=== PATIENT | male | born 1945 | race Caucasian/White ===

== ENCOUNTER → 2018-03-22 | Outpatient (CLI) | payer MEDICARE ==
--- NOTE | 2018-03-22 12:19 | CT ---
EXAMINATION TYPE: CT abdomen pelvis w con DATE OF EXAM: 03/22/2018 COMPARISON: None HISTORY: Recent elevated PSA results. CT DLP: 1572 mGycm Automated exposure control for dose reduction was used. TECHNIQUE: Helical acquisition of images was performed from the lung bases through the pelvis. CONTRAST: Performed with Oral Contrast and with IV Contrast, patient injected with 100 mL of Isovue M300. FINDINGS: LUNG BASES: Minimal bibasilar subsegmental atelectasis is seen. LIVER/GB: Hepatic arterial calcifications are noted incidentally. Hepatic parenchyma is homogeneous. Cholelithiasis is seen. PANCREAS: No significant abnormality is seen. SPLEEN: No significant abnormality is seen. ADRENALS: Adrenal glands appear slightly thickened bilaterally but maintain a normal adreniform shape , likely related to adrenal gland hyperplasia. 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 Kidneys enhance and excrete symmetrically. No hydronephrosis. FREE AIR: No free air is visualized. ADENOPATHY: No suspicious pelvic or abdominal adenopathy is seen. REPRODUCTIVE ORGANS: Slight hyperdensity of the posterior mid gland and apex are noted such as on ser ies 3 image 91 and 90 on liver windows. There is slight fullness of the left seminal vesicle in roosevelt rison to the right, which could be physiologic. URINARY BLADDER: There is a 9 mm peripherally hyperdense lesion within the urinary bladder that appe ars intraluminal on sagittal series 9 image 72 also marked on axial series 3 image 83. On the right t here is impression by the lobulated prostate gland. OSSEOUS STRUCTURES: Moderate multilevel degenerative change. No suspicious osseous lesion. BOWEL: Hernias are described below scattered colonic diverticula are seen. No dilated large or small bowel. Contrast doesn't enter the colon and therefore limits evaluation of the colon. OTHER: There is a large left inguinal hernia containing the sigmoid colon and multiple colonic divert iculi without dilated bowel to suggest obstruction nor pericolonic fat stranding. The right inguinal canal is patulous and there is a low-lying small bowel just entering the small hernia. Extensive atherosclerosis is seen of the abdominal aorta and its branches. Punctate calcific density of the inferior right gluteal subcutaneous tissues may be on the basis of p rior trauma or injection granuloma. IMPRESSION: 1. NO SUSPICIOUS PELVIC, ABDOMINAL, OR SPECIFICALLY RETROPERITONEAL ADENOPATHY. NO SUSPICIOUS OSSEOUS LESIONS. 2. LARGE LEFT INGUINAL HERNIA CONTAINING NONDILATED SIGMOID COLON AND SMALL RIGHT INGUINAL HERNIA CON TAINING NONDILATED SMALL BOWEL. 3. 9 MM HYPERDENSE LESION APPEARING TO BE WITHIN THE URINARY BLADDER. FURTHER ASSESSMENT COULD BE PER FORMED WITH CT UROGRAM OR DIRECT VISUALIZATION. 4. HETEROGENOUS PROSTATE GLAND WITH HYPERDENSE REGIONS AT THE POSTERIOR PROSTATE GLAND AND APEX AND S LIGHT ASYMMETRIC SIZE OF THE SEMINAL VESICLES, LEFT GREATER THAN RIGHT.
--- NOTE | 2018-03-22 19:06 | NM ---
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 Staging for prostate cancer. Technique: Delayed whole-body scanning was performed following the injection of 24.8 mCi Tc 99m MDP. Whole body anterior and posterior delayed images acquired 3 hours post injection. FINDINGS: There is intense radiotracer activity limited to the right ischium and right superior pubic ramus. In the left hemipelvis, abnormal tracer activity involving the left inferior pubic ramus and ischial tuberosity. Additional focus seems to be present along the posterior right greater trochanter. Some degenerative tracer activity is noted at the right shoulder, wrists, and knees. IMPRESSION: Abnormal tracer activity involving the right greater than left ischium and pubic bones as well as the posterior right greater trochanter. In the setting of prostate cancer, osseous metastatic disease is considered. Correlate with PSA levels. The CT performed today is reviewed and in retrospect shows smith btle osteosclerosis in these regions.
== END ==
LOC: RADNMMAIN 09:41
PROVIDERS: ATTEND Urology
DX: C61 Malignant neoplasm of prostate (principal); K40.90 Unilateral inguinal hernia, without obstruction or gangrene, not specified as recurrent; N32.9 Bladder disorder, unspecified
CPT/HCPCS: 82565; 84520; 74177; 36415; 78306; A9503; Q9967

== ENCOUNTER → 2018-12-20 | Outpatient (CLI) | payer MEDICARE ==
--- NOTE | 2018-12-21 16:07 | NM ---
EXAMINATION TYPE: NM bone scan whole body DATE OF EXAM: 12/20/2018 COMPARISON: 03/22/2018 Limited thin whole-body bone scan and CT abdomen pelvis HISTORY: Prostate cancer. Follow-up exam. Delayed whole-body scanning was performed following the injection of 24.9 mCi Tc 99m MDP. Images acq uired 3.75 hours post injection. FINDINGS: The previously seen intense radiotracer activity limited to the right ischium and right superior pubi c ramus as well as within the left hemipelvis involving the inferior pubic ramus and ischial tuberosi ty have markedly decreased degree of uptake with only minimal abnormal uptake persisting of the right ischium and acetabulum. The previously seen additional focus of abnormal tracer uptake within the posterior right greater tro chanter has also markedly improved. No new suspicious focal radiotracer accumulation is seen area degenerative changes are also again see n of the axial and appendicular skeleton with symmetric uptake of the shoulders, sacroiliac joints, e lbows, wrists, hips, knees, ankles, and feet. Asymmetric uptake within the right first metatarsophala ngeal joint is also likely degenerative. IMPRESSION: Marked improved degree of uptake within the right pelvis with only minimal abnormal uptake remaining in the right ischium, acetabulum and greater trochanter. No new abnormal uptake to suggest additional site of osseous metastasis. Degenerative changes of the axial and appendicular skeleton are again se en.
== END | disposition home or self-care (01) ==
LOC: RADNMMAIN 10:58
PROVIDERS: ATTEND Urology
DX: M89.8X8 Other specified disorders of bone, other site (principal); C61 Malignant neoplasm of prostate
CPT/HCPCS: 78306; A9503

== ENCOUNTER → 2021-05-12 | Outpatient (CLI) | payer MEDICARE ==
--- NOTE | 2021-05-12 13:14 | CT ---
EXAMINATION TYPE: CT abdomen pelvis w con DATE OF EXAM: 05/12/2021 COMPARISON: CT abdomen and pelvis March 22, 2018. HISTORY: Prostate cancer CT DLP: 1522.50 mGycm, Automated Exposure Control for Dose Reduction was Utilized. CONTRAST: CT scan of the abdomen and pelvis is performed with oral and with IV Contrast, patient injected with 100 mL of Isovue 300. FINDINGS: LUNG BASES: Mild left basilar linear scarring is redemonstrated. Overlying sternal wires from CABG pr ocedure partially imaged similar to prior. LIVER/GB: Dependent small calcified gallstones in the gallbladder are again seen. PANCREAS: No significant abnormality is seen. SPLEEN: No significant abnormality is seen. ADRENALS: Stable mild thickening of bilateral adrenal glands consistent with benign hyperplasia. 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 Left kidney has anterior positioning or axis redemonstrated. There is symmetric cortical uptake and excretion from both kidne ys without hydronephrosis seen bilaterally. BOWEL: Oral contrast does not reach level of the terminal ileum making evaluation of distal bowel sli ghtly suboptimal. There is no suspicious small or large bowel dilatation. There is persistent small t o moderate right inguinal hernia containing contrast-filled nondilated small bowel loops and mesenter ic fat. There is moderate to large size left inguinal hernia containing portion of sigmoid colon. The re are distal colonic diverticula particularly in the left inguinal sigmoid colon. No CT evidence for acute diverticulitis. PROSTATE/SEMINAL VESICLES: Prostate gland not enlarged, diminished in size from prior. Seminal vesicl es normal diminished in size from prior. LYMPH NODES: No greater than 1cm abdominal or pelvic lymph nodes are appreciated. OSSEOUS STRUCTURES: Moderate to severe disc space narrowing L4-L5 level with vacuum disc phenomenon. Facet arthropathy lower lumbar levels. No distinct suspicious new lytic or sclerotic lesion. OTHER: [id number] calcified plaque of the aorta extends into branch vessels. Suspected stent gr aft in the proximal right external iliac artery is thought present similar to prior study. Patency is noted. IMPRESSION: No suspicious new mass or adenopathy to suggest metastatic malignancy. Overall diminished size to the seminal vesicles and prostate gland likely product of anti-androgen medication. Other fi ndings identified not significantly changed from prior CT.
--- NOTE | 2021-05-12 14:07 | NM ---
EXAMINATION TYPE: NM bone scan whole body DATE OF EXAM: 05/12/2021 COMPARISON: NONE HISTORY: C61 prostate cancer Delayed whole-body scanning was performed following the injection of 24 mCi Tc 99m MDP. Images acqui red 3 hours post injection. FINDINGS: Increased radiotracer accumulation about the shoulders, sternoclavicular joints, wrists, knees and an kles and feet. The findings are compatible with degenerative uptake. No intense focal uptake to sugge st metastatic disease. Degenerative uptake mid thoracic spine as well. IMPRESSION: No scintigraphic evidence to suggest metastatic disease at this time.
== END | disposition home or self-care (01) ==
LOC: RADNMMAIN 09:52
PROVIDERS: ATTEND Urology
DX: C61 Malignant neoplasm of prostate (principal)
CPT/HCPCS: 82565; 84520; 74177; 36415; 78306; A9503; Q9967

== ENCOUNTER → 2022-12-02 | Outpatient (CLI) | payer MEDICARE ==
[2022-12-02 10:54] LABS: African American GFR (CKD) 82 (>60 ml/min/1.73 sqM); Blood Urea Nitrogen 24 mg/dL (9-20); Non-African American GFR(CKD) 71 (>60 ml/min/1.73 sqM)
--- NOTE | 2022-12-02 14:36 | NM ---
EXAMINATION TYPE: NM bone scan whole body DATE OF EXAM: 12/02/2022 COMPARISON: NONE CLINICAL INDICATION: Male, 77 years old with history of C61 PROSTATE CANCER; Delayed whole-body scanning was performed following the injection of 22.8 mCi Tc 99m MDP. Images acq uired 3 hours post injection. FINDINGS: There is no intense uptake to suggest metastatic disease to the visualized osseous structures. Degene rative uptake about the shoulders, sternoclavicular joints, bilateral wrists, knees and ankles. Mild degenerative uptake about the mid thoracic spine and lumbar spine. IMPRESSION: No scintigraphic evidence to suggest metastatic disease to the osseous structures at this time.
--- NOTE | 2022-12-02 18:29 | CT ---
EXAMINATION TYPE: CT abdomen pelvis w con DATE OF EXAM: 12/02/2022 COMPARISON: 05/12/2021 INDICATION: h/o prostate CA, f/u DLP: 1438.8 mGycm, Automated exposure control for dose reduction was used. CONTRAST: 100 mL of Isovue 300. Study performed without Oral Contrast TECHNIQUE: Axial images were obtained from above the diaphragm to the pubic rami in the axial plane a t 5 mm thick sections. Reconstructed images are reviewed on the computer in the coronal plane. FINDINGS: Limited CT sections are obtained the lung bases. The lung bases are clear. CT ABDOMEN: Liver: Normal Spleen: Normal Pancreas: Normal Adrenal glands: The adrenal glands are normal. Gallbladder: Normal Kidneys: No masses are evident. No hydronephrosis is present. No cysts are present. Delayed images were obtained through the kidneys, which remain unremarkable. Aorta: Vascular calcification is within the aorta. Inferior vena cava: Normal. CT PELVIS: There is a large left inguinal hernia containing nonobstructed loops of colon. Few diverti culi are present within this region. Loops of bowel within the abdomen and pelvis are normal. There are loops of bowel which are incom pletely distended or lack oral contrast limiting their evaluation. Appendix: Not identified. No dilated tubular structure or inflammatory change is evident. Urinary bladder: Normal Genitourinary structures: Prostate appears normal. Osseous structures: No suspicious lytic or sclerotic lesions. Lumbar Facet hypertrophy is present. IMPRESSIONS: 1. No suspicious changes to suggest recurrent or metastatic prostate cancer. 2. Diverticulosis without acute diverticulitis. This may predominantly be within the large left ingui nal hernia. The colon is nonobstructed.
== END | disposition home or self-care (01) ==
LOC: RADNMMAIN 10:15
PROVIDERS: ATTEND Urology
DX: C61 Malignant neoplasm of prostate (principal); K40.90 Unilateral inguinal hernia, without obstruction or gangrene, not specified as recurrent; K57.30 Diverticulosis of large intestine without perforation or abscess without bleeding
CPT/HCPCS: 82565; 84520; 74177; 36415; 78306; A9503; Q9967